=== PATIENT | female | born 1970 | race Caucasian/White ===

== ENCOUNTER 2020-11-23 16:45 | Observation (INO) | payer BC ==
[2020-11-23] MEDS ORDERED: HYDROMORPHONE HCL 1 MG/ML INJ ONE (17:39)
[2020-11-23] MEDS ORDERED: ONDANSETRON 4 MG/2 ML VIAL ONE (17:39)
[2020-11-23 17:48] LABS: Urine Blood Negative (Negative); Urine Glucose Negative (Negative); Urine Protein Negative (Negative); Urine Specific Gravity >=1.030 (1.005-1.030); Urine pH 6.5 (5.0-7.0)
[2020-11-23 17:58] LABS: Urine Specific Gravity/Preg >1.030 (1.005-1.030)
[2020-11-23 18:12] LABS: ALT/SGPT 49 U/L (12-78); AST/SGOT 104 U/L (15-37); Albumin 3.8 g/dL (3.4-5.0); Alkaline Phosphatase 90 U/L (45-117); BUN Blood Urea Nitrogen 10 mg/dL (7-18); Bicarbonate 24 mmol/L (21-32); Bilirubin Direct 0.2 mg/dL (0-0.2); Bilirubin Total 0.5 mg/dL (0.2-1.0); Glucose Level 91 mg/dL (74-106); Lipase 246 U/L (73-393); Potassium 3.5 mmol/L (3.5-5.1); Protein, Total 7.8 g/dL (6.4-8.2); Sodium Level 143 mmol/L (136-145)
[2020-11-23 18:23] LABS: Urine Bacteria 20-50 /HPF (<20); Urine RBC NONE SEEN /HPF (NONE SEEN)
[2020-11-23 18:24] LABS: Urine Mucus HEAVY /HPF (NONE SEEN); Urine Yeast MANY (NONE SEEN)
--- NOTE | 2020-11-23 18:31 | RAD REPORT ---
EXAM DESCRIPTION: US - Abdomen Exam Limited - 11/23/2020 5:58 pm CLINICAL HISTORY: Right upper quadrant pain COMPARISON: No comparisons FINDINGS: Gallbladder size is normal. Several small variably sized gallstones are identifiable. Ther e is no wall thickening or pericholecystic fluid. No common duct stone or biliary tree dilatation identified. IMPRESSION: Cholelithiasis without sonographic findings of cholecystitis. No biliary tree abnormality.
--- NOTE | 2020-11-23 19:18 | RAD REPORT ---
EXAM DESCRIPTION: CT - Abdomen Pelvis W Contrast - 11/23/2020 6:44 pm CLINICAL HISTORY: ABD PAIN COMPARISON: No comparisons TECHNIQUE: Biphasic, helical CT imaging of the abdomen and pelvis was performed following 100 ml non -ionic IV contrast. No oral contrast was given. All CT scans are performed using dose optimization technique as appropriate and may include automated exposure control or mA/KV adjustment according to patient size. FINDINGS: No suspicious findings in the lung bases. The liver, spleen, and pancreas show no suspicious findings. Gallbladder and biliary tree are also wi thout suspicious finding. Symmetric renal function is seen with no hydronephrosis or suspicious renal mass. No pyelonephritis o r acute parenchymal process. No bladder abnormalities. No adrenal abnormalities. No uterus or left ov eva abnormality. A 2.8 centimeter right ovarian cyst is present. No cyst rupture or hemorrhage findin gs. No dilated bowel loops or bowel wall thickening. No appendicitis findings. No free air, free fluid or inflammatory stranding. No hernia, mass or bulky lymphadenopathy. No suspicious bony findings. No aneurysm or vascular abnormality seen. IMPRESSION: Contrast enhanced CT abdomen and pelvis showing no acute or emergent finding. Nonacute findings detailed in the body of the report.
[2020-11-23 19:22] LABS: Absolute Lymphocytes (CBC) 1.1 K/uL (0.7-4.9); Basophils % 0.3 % (0-1.3); Hematocrit 34.9 % (36.0-45.0); Lymphocytes % 13.1 % (15.3-44.8); MPV 7.5 fL (7.6-11.3)
--- NOTE | 2020-11-23 20:20 | ER ---
Nurse's Notes [facility] Name: Courtney Krishnan Age: 50 yrs Sex: Female : 1970 Arrival Date: 11/23/2020 Time: 16:48 Bed 20 Private MD: Herman Boogie Diagnosis: Acute cholecystitis;Other cholelithiasis without obstruction Presentation: 11/23 16:55 Chief complaint: Patient states: RUQ pain \\T\\ lower back pain X 2 days. Coronavirus ld1 screen: At this time, the client does not indicate any symptoms associated with coronavirus-19. Ebola Screen: No symptoms or risks identified at this time. Initial Sepsis Screen: Does the patient meet any 2 criteria? No. Patient's initial sepsis screen is negative. Does the patient have a suspected source of infection? No. Patient's initial sepsis screen is negative. Risk Assessment: Do you want to hurt yourself or someone else? Patient reports no desire to harm self or others. Onset of symptoms was November 23, 2020. 16:55 Method Of Arrival: Ambulatory ld1 16:55 Acuity: ARCELIA 3 ld1 Triage Assessment: 16:57 General: Appears in no apparent distress. comfortable, Behavior is calm, cooperative, ld1 appropriate for age. Pain: Complains of pain in lumbar area and right upper quadrant Pain does not radiate. Pain currently is 6 out of 10 on a pain scale. at worst was 9 out of 10 on a pain scale. Quality of pain is described as throbbing, Pain began 1 day ago. Is intermittent. EENT: No signs and/or symptoms were reported regarding the EENT system. Neuro: Level of Consciousness is awake, alert, obeys commands, Oriented to person, place, time, situation. Cardiovascular: Capillary refill < 3 seconds Patient's skin is warm and dry. Respiratory: Airway is patent Respiratory effort is even, unlabored, Respiratory pattern is regular, symmetrical. GI: Abdomen is round non-distended, Reports upper abdominal pain. : No signs and/or symptoms were reported regarding the genitourinary system. Derm: No signs and/or symptoms reported regarding the dermatologic system. Musculoskeletal: No signs and/or symptoms reported regarding the musculoskeletal system. 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 - Social history:: Smoking status: Patient denies any tobacco usage or history of. Patient/guardian denies using alcohol, street drugs. Screenin:00 Abuse screen: Denies threats or abuse. Denies injuries from another. Nutritional ch5 screening: No deficits noted. Tuberculosis screening: No symptoms or risk factors identified. Fall Risk None identified. Assessment: 17:00 Reassessment:. Pain: Complains of pain in epigastric area. ch5 22:08 Reassessment: Patient appears in no apparent distress at this time. No changes from sj1 previously documented assessment. 23:36 General: Appears in no apparent distress. comfortable, Behavior is calm, cooperative, sj1 appropriate for age. Neuro: Level of Consciousness is awake, alert, Oriented to person, place, time, situation. Cardiovascular: No deficits noted. Respiratory: No deficits noted. : No deficits noted. EENT: No deficits noted. Derm: No deficits noted. Musculoskeletal: No deficits noted. 11/24 00:06 Reassessment: REPORT GIVEN TO RECEIVING RN. sj1 Vital Signs: 11/23 16:55 BP 150 / 99; Pulse 77; Resp 18; Temp 97.5(O); Pulse Ox 99% on R/A; Weight 83.91 kg; ld1 Height 5 ft. 3 in. (160.02 cm); Pain 6/10; 18:46 BP 103 / 60; Pulse 70; Resp 14; Pulse Ox 99% on R/A; Pain 0/10; ch5 22:07 BP 110 / 65; Pulse 75; Resp 16 S; Temp 98.1(O); Pulse Ox 99% ; Pain 0/10; sj1 16:55 Body Mass Index 32.77 (83.91 kg, 160.02 cm) ld1 Vitals: 22:07 Cardiac Rhythm Assessment Regular Sinus rhythm. 1 ED Course: 16:48 Patient arrived in ED. mr 16:48 Herman Boogie, is Private Physician. mr 16:57 Triage completed. ld1 16:57 Arm band placed on right wrist. ld1 16:59 Deepali Rodriguez, RN is Primary Nurse. ld1 17:00 Placed in gown. Bed in low position. Call light in reach. Side rails up X2. ch5 17:00 No provider procedures requiring assistance completed. Inserted saline lock: 22 gauge ch5 in right forearm, using aseptic technique. 17:03 Bebe Boogie MD is Attending Physician. sp3 17:48 Urine Microscopic Only Sent. ch5 17:58 US Abdomen Limited In Process Unspecified. EDMS 18:44 CT Abd/Pelvis - IV Contrast Only In Process Unspecified. EDMS 19:17 Attending Physician role handed off by Bebe Boogie MD [facility] 19:17 Harrison Lucas MD is Attending Physician. billy 20:18 Long Lopez MD is Hospitalizing Provider. billy 21:29 COVID-19 (Coronavirus) Document "Date of Onset" if Symptomatic Sent. sj1 22:08 CORONAVIRUS Sent. sj1 Administered Medications: 17:40 Drug: Dilaudid (HYDROmorphone) 1 mg Route: IVP; Site: right forearm; ch5 18:42 Follow up: Response: Pain is decreased ch5 19:45 Follow up: Response: Pain is decreased sj1 17:40 Drug: Zofran (Ondansetron) 4 mg Route: IVP; Site: right forearm; ch5 18:42 Follow up: Response: No adverse reaction ch5 19:45 Follow up: Response: Pain is decreased sj1 21:29 Drug: Pepcid (famotidine) 20 mg Route: IVP; Site: right antecubital; sj1 22:08 Follow up: Response: No adverse reaction sj1 21:29 Drug: Zosyn (piperacillin-tazobactam) 3.375 grams Route: IVPB; Infused Over: 60 mins; sj1 Site: right antecubital; 22:08 Follow up: IV Status: Completed infusion; IV Intake: 100ml sj1 Intake: 22:08 IV: 100ml; Total: 100ml. sj1 Outcome: 20:19 Decision to Hospitalize by Provider. [facility] 11/24 00:07 Patient left the ED. sj1 Signatures: Dispatcher [employer] EDMS Harrison Lucas MD MD cha Rivera, Mary mr Deepali Rodriguez, RN RN ld1 Bebe Boogie MD MD sp3 Helder Olivia, MARIO RN ch5 Eunice Hoang RN RN sj1
--- NOTE | 2020-11-23 20:20 | EDPHYS ---
Physician Documentation [facility] Name: Courtney Krishnan Age: 50 yrs Sex: Female : 1970 Arrival Date: 11/23/2020 Time: 16:48 Bed 20 Private MD: [facility] ED Physician Harrison Lucas HPI: 11/23 17:15 This 50 yrs old Female presents to ER via Ambulatory with complaints of sp3 Abdominal Pain. 17:15 50-year-old female with no significant past medical history presents with right upper sp3 quadrant abdominal pain since yesterday that is worse after food. Patient states that she has had "problems going to the bathroom too much" and received a colonoscopy in the past but has had no problems with her gallbladder, pancreas, ulcers, any other issues in the past. She denies ever having a kidney stone or musculoskeletal pain. She denies fever, neck pain, shortness of breath, chest pain, vomiting, diarrhea, any other symptoms on ROS at this time. Remainder of ROS symptoms are negative.. 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 - Social history:: Smoking status: Patient denies any tobacco usage or history of. Patient/guardian denies using alcohol, street drugs. ROS: 17:20 Constitutional: Negative for fever, chills, and weight loss, Eyes: Negative for injury, sp3 pain, redness, and discharge, ENT: Negative for injury, pain, and discharge, Neck: Negative for injury, pain, and swelling, Cardiovascular: Negative for chest pain, palpitations, and edema, Respiratory: Negative for shortness of breath, cough, wheezing, and pleuritic chest pain, Back: Negative for injury and pain, MS/Extremity: Negative for injury and deformity, Skin: Negative for injury, rash, and discoloration, Neuro: Negative for headache, weakness, numbness, tingling, and seizure, Psych: Negative for depression, anxiety, suicide ideation, homicidal ideation, and hallucinations. 17:20 All other systems are negative. Exam: 17:20 Constitutional: This is a well developed, well nourished patient who is awake, alert, sp3 and in no acute distress. Head/Face: Normocephalic, atraumatic. Eyes: Pupils equal round and reactive to light, extra-ocular motions intact. Lids and lashes normal. Conjunctiva and sclera are non-icteric and not injected. Cornea within normal limits. Periorbital areas with no swelling, redness, or edema. ENT: Nares patent. No nasal discharge, no septal abnormalities noted. External auditory canals are clear. Oropharynx with no redness, swelling, or masses, exudates, or evidence of obstruction, uvula midline. Mucous membranes moist. Neck: Trachea midline, no thyromegaly or masses palpated, and no cervical lymphadenopathy. Supple, full range of motion without nuchal rigidity, or vertebral point tenderness. No Meningismus. Chest/axilla: Normal chest wall appearance and motion. Nontender with no deformity. No lesions are appreciated. Cardiovascular: Regular rate and rhythm with a normal S1 and S2. No gallops, murmurs, or rubs. Normal PMI, no JVD. No pulse deficits. Respiratory: Lungs have equal breath sounds bilaterally, clear to auscultation and percussion. No rales, rhonchi or wheezes noted. No increased work of breathing, no retractions or nasal flaring. Back: No spinal tenderness. No costovertebral tenderness. Full range of motion. Skin: Warm, dry with normal turgor. Normal color with no rashes, no lesions, and no evidence of cellulitis. MS/ Extremity: Pulses equal, no cyanosis. Neurovascular intact. Full, normal range of motion. Neuro: Awake and alert, GCS 15, oriented to person, place, time, and situation. Cranial nerves II-XII grossly intact. Motor strength 5/5 in all extremities. Sensory grossly intact. Cerebellar exam normal. Normal gait. Psych: Awake, alert, with orientation to person, place and time. Behavior, mood, and affect are within normal limits. 17:20 Abdomen/GI: Patient abdomen is soft, nondistended, with no peritoneal signs. Patient does have right upper quadrant pain on palpation and positive Hernandez sign. Negative CVA tenderness and bowel sounds are normal.. 21:49 ECG was reviewed by the Attending Physician. billy Vital Signs: 16:55 BP 150 / 99; Pulse 77; Resp 18; Temp 97.5(O); Pulse Ox 99% on R/A; Weight 83.91 kg; ld1 Height 5 ft. 3 in. (160.02 cm); Pain 6/10; 18:46 BP 103 / 60; Pulse 70; Resp 14; Pulse Ox 99% on R/A; Pain 0/10; ch5 22:07 BP 110 / 65; Pulse 75; Resp 16 S; Temp 98.1(O); Pulse Ox 99% ; Pain 0/10; sj1 16:55 Body Mass Index 32.77 (83.91 kg, 160.02 cm) ld1 MDM: 17:07 Patient medically screened. sp3 17:20 Data reviewed: vital signs, nurses notes. ED course: 50-year-old female with right sp3 upper quadrant abdominal pain. Likely diagnosis is cholecystitis versus biliary colic versus pancreatitis versus choledocholithiasis. Much less likely is UTI, pyelonephritis, ileus or small bowel pathology. I am not highly suspicious at all for vascular pathology including thoracic aortic aneurysm, AAA, mesenteric ischemia, acute coronary syndrome, pulmonary embolism, or any other emergency at this time. We will obtain CT scan of the abdomen and pelvis, ultrasound, laboratory values, administer Dilaudid and Zofran IV for symptomatic control. Patient will stay n.p.o. until disposition is determined... 20:03 Differential diagnosis: cholecystitis, Cholelithiasis, diverticulitis, non-specific abd billy pain, pancreatitis, Peptic Ulcer Disease. Data interpreted: school bus monitor: rate is 70 beats/min, rhythm is regular, Pulse oximetry: on room air. Test interpretation: by ED physician or midlevel provider: ECG, plain radiologic studies. Counseling: I had a detailed discussion with the patient and/or guardian regarding: the historical points, exam findings, and any diagnostic results supporting the discharge/admit diagnosis, lab results, radiology results, the need for further work-up and treatment in the hospital. 11/23 17:10 Order name: Basic Metabolic Panel; Complete Time: 18:29 sp3 11/23 17:10 Order name: CBC with Diff; Complete Time: 20:01 sp3 11/23 17:10 Order name: Hepatic Function; Complete Time: 18:29 [facility] 11/23 17:10 Order name: Lipase; Complete Time: 18:29 [facility] 11/23 17:10 Order name: Urine Microscopic Only; Complete Time: 18:29 [facility] 11/23 17:47 Order name: Urine Dipstick-Ancillary; Complete Time: 17:50 [facility] 11/23 17:10 Order name: CT Abd/Pelvis - IV Contrast Only; Complete Time: 20:01 [facility] 11/23 17:10 Order name: US Abdomen Limited; Complete Time: 18:36 [facility] 11/23 17:50 Order name: Urine --Ancillary (enter results); Complete Time: 18:29 11/23 20:04 Order name: Chest Single View XRAY [facility] 11/23 20:57 Order name: COVID-19 (Coronavirus) Document "Date of Onset" if Symptomatic em 11/23 21:34 Order name: RAD [facility] 11/23 21:41 Order name: CORONAVIRUS [facility] 11/23 22:52 Order name: SARS-COV-2 RT PCR [facility] 11/23 17:10 Order name: IV Saline Lock; Complete Time: 17:40 [facility] 11/23 17:10 Order name: Labs collected and sent; Complete Time: 17:40 [facility] 11/23 17:10 Order name: Urine Test (obtain specimen); Complete Time: 17:48 [facility] 11/23 17:10 Order name: Urine Dipstick-Ancillary (obtain specimen); Complete Time: 17:48 [facility] 11/23 18:34 Order name: Labs - recollect needed: recollect lavender top; Complete Time: 19:09 11/23 20:04 Order name: EKG; Complete Time: 20:04 [facility] 11/23 20:04 Order name: EKG - Nurse/Tech; Complete Time: 21:29 [facility] EC:49 Rate is 65 beats/min. Rhythm is regular. QRS [place] is Normal. [place] interval is normal. QRS billy interval is normal. QT interval is normal. No Q waves. T waves are Normal. No ST changes noted. Clinical impression: Normal ECG and No evidence of ischemia. Interpreted by me. Reviewed by me. Administered Medications: 17:40 Drug: Dilaudid (HYDROmorphone) 1 mg Route: IVP; Site: right forearm; ch5 18:42 Follow up: Response: Pain is decreased ch5 19:45 Follow up: Response: Pain is decreased sj1 17:40 Drug: Zofran (Ondansetron) 4 mg Route: IVP; Site: right forearm; ch5 18:42 Follow up: Response: No adverse reaction ch5 19:45 Follow up: Response: Pain is decreased sj1 21:29 Drug: Pepcid (famotidine) 20 mg Route: IVP; Site: right antecubital; sj1 22:08 Follow up: Response: No adverse reaction sj1 21:29 Drug: Zosyn (piperacillin-tazobactam) 3.375 grams Route: IVPB; Infused Over: 60 mins; sj1 Site: right antecubital; 22:08 Follow up: IV Status: Completed infusion; IV Intake: 100ml 1 Disposition Summary: 11/23/20 20:19 Hospitalization Ordered Hospitalization Status: Observation billy Provider: Long Lopez cha Location: Telemetry/MedSurg (observation) billy Condition: Stable billy Problem: new billy Symptoms: have improved billy Bed/Room Type: [facility] Room Assignment: 420(11/23/20 23:15) Diagnosis - Acute cholecystitis billy - Other cholelithiasis without obstruction [facility] Discharge Instructions: - Discharge Summary Sheet 5 Forms: - Medication Reconciliation Form billy - SBAR form 5 Signatures: Dispatcher [employer] EDMS Courtney Claire Corey, MD MD cha Garcia, Cindy, RN RN Deepali Rodriguez RN RN ld1 Bebe Boogie MD MD sp3 Helder Olivia RN RN ch5 Eunice Hoang RN RN sj1 Corrections: (The following items were deleted from the chart) 17:22 17:20 ED course: 50-year-old female with right upper quadrant abdominal pain. Likely sp3 diagnosis is cholecystitis versus biliary colic versus pancreatitis versus choledocholithiasis. Much less likely is UTI, pyelonephritis, ileus or small bowel pathology. I am not highly suspicious at all for vascular pathology including thoracic aortic aneurysm, AAA, mesenteric ischemia, any other emergency at this time. We will obtain CT scan of the abdomen and pelvis, ultrasound, laboratory values, administer Dilaudid and Zofran IV for symptomatic control. Patient will stay n.p.o. until disposition is determined... sp3 23:15 20:19 [facility]
--- NOTE | 2020-11-23 21:32 | RAD REPORT ---
EXAM DESCRIPTION: RAD - Chest Single View - 11/23/2020 8:56 pm CLINICAL HISTORY: COUGH COMPARISON: None TECHNIQUE: AP portable chest image was obtained 11/23/2020 8:56 pm . FINDINGS: Lung volumes are low. No peripheral mass or consolidation. Interstitial pattern is promine nt with baseline unknown. Interstitial edema or infiltrate are not excluded. Mildly enlarged cardiac silhouette is present. Central vasculature is prominent. No hilar mass or ly mphadenopathy seen. No measurable pleural effusion and no pneumothorax. No acute bony abnormality seen. No acute aortic findings suspected. IMPRESSION: Baseline study shows mild prominence of the heart, vasculature and lung markings. Mild failure or volume overload cannot be excluded. Mild interstitial infiltrate also possible.
[2020-11-23] MEDS ORDERED: FAMOTIDINE 20 MG/2 ML VIAL IV ONE (21:36)
[2020-11-23] MEDS ORDERED: NA CHLORIDE 0.9% 100 ML ONE (21:37)
[2020-11-23] MEDS ORDERED: PIPERACIL/TAZO 3.375 GM VIAL IV ONE (21:37)
[2020-11-23] MEDS ORDERED: ONDANSETRON 4 MG/2 ML VIAL IV PRN (23:45)
[2020-11-23] MEDS ORDERED: ACETAMINOPHEN 325 MG TABLET PO PRN (23:45)
[2020-11-23] MEDS ORDERED: MORPHINE 2 MG/ML SYR IV PRN (23:45)
[2020-11-24] MEDS: D5 0.45 NS 1,000 ML IV SCH ×4 (00:12→23:37)
[2020-11-24 00:16] VITALS: BMI 31.0
[2020-11-24] MEDS: PIPER TAZO 3.375 GM in NA CHLORIDE 0.9% 100 ML IV SCH ×2 (05:37→14:00)
[2020-11-24 06:11] LABS: Absolute Lymphocytes (CBC) 1.3 K/uL (0.7-4.9); Basophils % 0.2 % (0-1.3); Lymphocytes % 21.1 % (15.3-44.8); MPV 7.4 fL (7.6-11.3); RBC Red Blood Cell Count 4.12 M/uL (3.86-4.86)
[2020-11-24 06:29] LABS: ALT/SGPT 198 U/L (12-78); Albumin 3.2 g/dL (3.4-5.0); Alkaline Phosphatase 105 U/L (45-117); BUN Blood Urea Nitrogen 7 mg/dL (7-18); Bicarbonate 23 mmol/L (21-32); Bilirubin Direct 0.2 mg/dL (0-0.2); Bilirubin Total 0.6 mg/dL (0.2-1.0); Glucose Level 105 mg/dL (74-106); Lipase 191 U/L (73-393); Potassium 3.9 mmol/L (3.5-5.1); Protein, Total 6.8 g/dL (6.4-8.2); Sodium Level 143 mmol/L (136-145)
[2020-11-24 06:30] LABS: AST/SGOT 318 U/L (15-37)
[2020-11-24] MEDS: FAMOTIDINE 20 MG/2 ML VIAL IV SCH ×2 (08:55→20:34)
[2020-11-24] MEDS ORDERED: MORPHINE 4 MG/ML SYR IV PRN (10:22)
[2020-11-24 10:30] VITALS: O2SAT 100
[2020-11-24] MEDS ORDERED: Ringers Lactate 1,000 ML IV ONE (11:36)
[2020-11-24] MEDS ORDERED: ACETAMINOPHEN 500 MG TAB ONE (11:54)
[2020-11-24] MEDS ORDERED: CELECOXIB 100 MG CAPSULE ONE (11:54)
[2020-11-24] MEDS ORDERED: MIDAZOLAM HCL 2 MG/2 ML INJ ONE (12:42)
[2020-11-24] MEDS ORDERED: FENTANYL CITR 100 MCG/2 ML ONE (12:42)
[2020-11-24] MEDS ORDERED: propofoL 200 MG/20 ML VIAL IV ONE (12:42)
[2020-11-24] MEDS ORDERED: LIDOCAINE 1% MPF 5 ML VIAL ONE (12:43)
[2020-11-24] MEDS ORDERED: dexAMETHasone 10 MG/ML VIAL ONE (12:43)
[2020-11-24] MEDS ORDERED: ONDANSETRON 4 MG/2 ML VIAL ONE ×2 (12:43→14:34)
[2020-11-24] MEDS ORDERED: ROCURONIUM 50 MG/5 ML VIAL IV ONE (12:43)
--- NOTE | 2020-11-24 12:56 | P.HP ---
Date of Service: 11/24/20 PC: This 50-year-old female presented to the emergency room with severe right upper quadrant abdominal pain for diagnosis and treatment. HPC: Patient is been having right upper quadrant abdominal pain for the last few days. Today the pain came severe she could no longer stand and presented for evaluation. PSHx: No prior abdominal surgeries PMHx: Negative Social Hx: No allergies Sys R: No cough, wheeze, shortness of breath. No chest pain or palpitations. No urinary complaints good exercise tolerance O/E: Awake alert uncomfortable HEENT: Nonicteric Chest: Air entry equal bilaterally Abd: Tender in the right upper quadrant [place]: Intact Data: As documented cholecystitis Impression: Cholecystitis with cholelithiasis, biliary colic Plan: I will taken the operating room for laparoscopic possible open cholecystectomy with a cholangiogram. The risks of this procedure have been discussed. The possibility of bleeding, infection, injury to bile ducts blood vessels and intestines has been described. Possible need for an open and/or further surgeries and procedures was discussed. She understands and wants us to proceed.
[2020-11-24] MEDS ORDERED: GLYCOPYRROLATE 0.2 MG/ML SYR ONE ×3 (13:43→14:02)
--- NOTE | 2020-11-24 13:49 | P.OP ---
Preoperative diagnosis: Cholecystitis with cholelithiasis, biliary colic Postoperative diagnosis: Cholecystitis with cholelithiasis, biliary colic Primary procedure: Laparoscopic cholecystectomy Secondary procedure: Cholangiogram Other procedure(s): Tap block Anesthesia: General Estimated blood loss: Less than 10 cc Specimen: 1 gallbladder and contents Findings: Inflamed gallbladder Operative Technique: The patient brought the operating room placed supine on the table. After the induction of adequate general endotracheal anesthesia, there the abdomen was prepped with a DuraPrep solution, she was draped in the usual aseptic manner. A subumbilical incision was made. This was brought down through the skin and subcutaneous tissue. The Visiport was used to enter the peritoneal cavity and created pneumoperitoneum to approximately 12 mmHg. Under direct vision a 5 mm trocar was placed in the upper midline, and 2 other 5 mm to the right lateral side of the abdomen. We will visualize the right upper quadrant. We could see an acutely inflamed gallbladder. A grasper was placed on the fundus. On elevating the gallbladder we identified Valdovinos's pouch. Another grasper was placed here. Gentle dissection allowed us to expose the cystic duct and artery. Having obtained the critical view, a clip was placed between the gallbladder and the cystic duct. An opening was made into the cystic duct through which we passed our cholangiocatheter. A cholangiogram demonstrated good flow of contrast into the duodenum, no filling defects were noted. The catheters were removed. Clips were placed on the distal portion of the cystic duct. The cystic duct was now transected. The cystic artery was clipped and divided. The gallbladder was now dissected free from the liver bed. It was placed into an Endo Catch, and brought out through the umbilical trocar site. At this point the abdomen was inspected to ensure adequate hemostasis. Irrigating fluid was aspirated from the right upper quadrant. A tap block was performed using 0.25% Marcaine. Attention was turned back towards the umbilicus. Using the Endo Close an a bsorbable suture was placed x2 to approximate the umbilical fascia. At this point the suture was tied, the pneumoperitoneum collapsed, and the trochars removed. [place] were then applied to the skin. At the end of the procedure she was stable and sent to the recovery room. Needle sponge instrument count were correct. No drains were placed Complications: None Transferred to: Recovery Room Condition: Good
[2020-11-24] MEDS ORDERED: KETOROLAC 30 MG/ML INJ ONE (14:03)
[2020-11-24] MEDS ORDERED: NEOSTIGMINE 1 MG/ML -5 ML ONE (14:03)
[2020-11-24] MEDS: HYDROMORPHONE HCL 1 MG/ML INJ ONE ×2 (14:11→14:35)
[2020-11-24] MEDS ORDERED: HYDROCODONE/APAP 7.5/325 MG TAB PO PRN (14:36)
[2020-11-24] MEDS ORDERED: HYDROMORPHONE HCL 1 MG/ML INJ ONE (14:59)
--- NOTE | 2020-11-24 15:16 | RAD REPORT ---
EXAM DESCRIPTION: RAD - Cholangiogram Oper-Xray Or - 11/24/2020 2:59 pm FINDINGS: A single portable C-arm view image was submitted from fluoroscopic assisted intraoperative cholangiogram. No biliary dilatation, intraluminal filling defect or other suspicious finding on thi s single image. Fluoro time was 0.3 minutes. Cumulative dose was 11.5 mGy.
--- NOTE | 2020-11-24 16:43 | EKG ---
Test Date: 2020-11-23 Test Time: 21:25:51 Financial Quantitative Analyst: MEASUREMENT RESULTS: Intervals: Rate: 65 VA: 174 QRSD: 84 QT: 430 QTc: 447 [place]: P: 36 VA: 174 QRS: 56 T: 50 INTERPRETIVE STATEMENTS: Normal sinus rhythm Normal ECG No previous ECG available for comparison Electronically Signed On 11-24-20 16:41:06 CDT by Howard Flores
[2020-11-24] MEDS: MORPHINE 4 MG/ML SYR IV PRN ×2 (16:46→23:37)
[2020-11-25] MEDS: FAMOTIDINE 20 MG/2 ML VIAL IV SCH (07:50)
[2020-11-25 09:28] VITALS: BP 118/69; TEMP 98.8
== END 2020-11-25 10:35 | disposition home or self-care (01) ==
LOC: ER 16:45 → ERHOLD 20:42 → 4TH 23:29
PROVIDERS: ADMIT Surgery; ATTEND Surgery
PROC: BF03YZZ Plain Radiography of Gallbladder and Bile Ducts using Other Contrast (ICD-10-PCS; 2020-11-24)
PROC: 0FT44ZZ Resection of Gallbladder, Percutaneous Endoscopic Approach (ICD-10-PCS; principal; 2020-11-24 12:00)
DX: K80.10 Calculus of gallbladder with chronic cholecystitis without obstruction (principal); Z20.822 Contact with and (suspected) exposure to COVID-19
CPT/HCPCS: 93005; 85025 ×2; 80048 ×2; 36415; 81025; 80076 ×2; 88304; 83690 ×2; 74177; 74300; 71045; 76705; 94010 ×2; 99284; 47563; U0003; Q9967; J2704; J2543 ×2; J2250; J3010; J1100; J1170 ×3; J2710; G0378 ×4; J7799 ×3; J7120; J2405 ×4; 81003; 81015; J2270